=== PATIENT | female | born 1955 | race Caucasian/White ===

== ENCOUNTER → 2016-05-19 | Outpatient (CLI) | payer OTHER ==
[2016-05-19 08:35] LABS: BILIRUBIN,TOTAL 0.7 mg/dL (0.3-1.2); CALCIUM 9.5 mg/dL (8.7-10.7); POTASSIUM 4.2 meq/L (3.8-5.2); TOTAL PROTEIN 7.4 g/dL (6.1-8.0)
== END ==
LOC: LAB 07:59
PROVIDERS: ATTEND Internal Medicine
DX: E78.5 Hyperlipidemia, unspecified (principal); F17.210 Nicotine dependence, cigarettes, uncomplicated
CPT/HCPCS: 80053; 80061; 82550

== ENCOUNTER → 2016-08-25 | Outpatient (CLI) | payer OTHER ==
--- NOTE | 2016-08-25 17:06 | DI ---
[facility] 12[facility]24 PM: Clinical History: The submandibular swelling. Previous Exam: None at this facility. Findings: Multiple helically acquired CT images are obtained through the soft tissues of the neck without contr ast, and demonstrate normal parotid glands. The submandibular glands are grossly normal as well. The thyroid is unremarkable. Skeletal structures are unremarkable demonstrating mild diffuse degenerative changes. The base of the skull is also unremarkable. The temporomandibular joint is normal bilaterally. Visualized portions of the lung apices are clear. There is a prominent lymph node in the region of the left submandibular gland measuring 2.5 x 1.4 cm. Impression: 1. Normal submandibular lymph nodes. 2. Single 2.5 x 1.4 cm prominent lymph node adjacent to the left submandibular gland most likely the area of concern, as the submandibular gland is normal in size. Recommend continued clinical followup. If there is a clinically worrisome lymph node, consider sonographic followup or biopsy.
== END ==
LOC: CT 12:18
PROVIDERS: ATTEND Internal Medicine
DX: K11.8 Other diseases of salivary glands (principal); F17.200 Nicotine dependence, unspecified, uncomplicated; Z12.31 Encounter for screening mammogram for malignant neoplasm of breast
CPT/HCPCS: 70490; G0202

== ENCOUNTER → 2016-09-29 | Outpatient (CLI) | payer OTHER ==
--- NOTE | 2016-09-29 13:16 | DI ---
US SOFT TISSUE HEAD/NECK,09/29/2016 9:55 AM: Clinical History: Amrit of submandibular gland. Previous Exam: CT neck performed 08/25/16 Findings: Multiple grayscale and color Doppler sonographic images are obtained through the neck. The maximum ar ea of tenderness is seen over the right submandibular joint, which is essentially normal. There is a 1.5 x 0.6 cm lymph node within the right anterior cervical chain. The left submandibular gland was also imaged, with a similar appearance to the right. There was an ad jacent normal-appearing lymph node measuring 2.3 x 0.8 cm. Impression: 1. Bilateral normal submandibular glands. 2. Bilateral anterior cervical lymph nodes, which are nonpathologic by size criteria.
== END ==
LOC: US 09:51
PROVIDERS: ATTEND Internal Medicine
DX: R68.84 Jaw pain (principal)
CPT/HCPCS: 76536

== ENCOUNTER → 2016-10-29 | Outpatient (CLI) | payer OTHER ==
[2016-10-29 10:39] LABS: BASOPHILS # (AUTO) 0.03 10*3/UL; BASOPHILS % (AUTO) 0.3 % (0-1); EOSINOPHILS # (AUTO) 0.33 10*3/UL; EOSINOPHILS % (AUTO) 3.6 % (0-8); HEMATOCRIT 41.5 % (37.0-47.0); HEMOGLOBIN 13.6 g/dL (12.0-16.0); LYMPHOCYTES # (AUTO) 2.64 10*3/uL; MEAN CORPUSCULAR HEMOGLOBIN 28.9 PG (27-31); MEAN CORPUSCULAR HGB CONC 32.8 g/dL (33-37); MEAN CORPUSCULAR VOLUME 88.3 FL (81-99); MEAN PLATELET VOLUME 9.9 FL (7.4-12.2); MONOCYTES # (AUTO) 0.61 10*3/UL (0.3-0.8); MONOCYTES % (AUTO) 6.7 % (5-15); NEUTROPHILS # (AUTO) 5.42 10*3/UL
[2016-10-29 10:42] LABS: PLATELET MORPHOLOGY COMMENT NORMAL MORPHOLOGY (NORM); RBC MORPHOLOGY COMMENT NORMAL MORPHOLOGY (NORM); WBC MORPHOLOGY COMMENT NORMAL MORPHOLOGY (NORM)
[2016-10-29 10:57] LABS: BLOOD UREA NITROGEN 10 mg/dL (7-22); BUN/CREATININE RATIO 11.11 (6-20); C-REACTIVE PROTEIN 4.7 mg/dL (0.0-0.9); CALCIUM 8.8 mg/dL (8.7-10.7); EST GLOMERULAR FILTRATION > 60 (>60 ml/min/1.73m(2)); LIPASE 116 IU/L (23-300); SERUM ALBUMIN 3.7 g/dL (3.5-4.8)
--- NOTE | 2016-10-29 12:38 | DI ---
CT ABDOMEN SCAN WITH IV CONTRAST, 10/29/2016 11:11 AM : Clinical History: Left lower quadrant abdominal pain. Previous Exam: None at this facility. Scans are performed from the lower lung bases through the liver and kidneys with IV contrast. 75 ml o f Isovue 300 was injected IV. No oral or rectal contrast was ordered. The lung bases are clear. The liver is normal. The patient is status post cholecystectomy. There is n o abnormality of the spleen, pancreas, and adrenal glands. Both kidneys are normal in size, shape, po sition and contour. There is no hydronephrosis or hydroureter. No renal or ureteral calculi are prese nt. There are no abnormal retrocrural or periaortic nodes. No ascites is present. READING: Normal CT abdomen scan. CT PELVIS SCAN WITH IV CONTRAST, 10/29/2016 11:11 AM: Clinical History: See above. Previous Exam: 08/05/2014. Scans are performed from just superior to the umbilicus to the symphysis pubis with IV contrast. This is the same bolus of contrast used for the CT scans of the abdomen. Scans through the lower abdomen and pelvis show no masses or abnormal fluid collections. There is no adenopathy. There are surgical cristiane at the base of the cecum in this patient presumably has had an appendectomy. There is no inflammatory mass either in the cecal tip or in the right lower quadrant. The small bowel, terminal ileum, and ileocecal valve are normal. At the junction between the descendi ng colon and sigmoid colon, there is a focus of periserosal inflammatory change with inflammatory ruby nge extending into the mesentery associated with a diverticulum. This is consistent with acute divert iculitis without an abscess cavity or free air or free fluid. There is a small umbilical hernia throu gh which only mesenteric fat has herniated. The patient is status post hysterectomy and bilateral anita pingo-oophorectomy. READIN. There is a short segment of large bowel at the junction between the distal descending colon and t he sigmoid colon indicating acute diverticulitis without abscess formation. 2. The remainder of the examination is normal.
== END ==
LOC: MOB LAB 10:06
PROVIDERS: ATTEND Physician Assistant
DX: R10.32 Left lower quadrant pain (principal); E78.5 Hyperlipidemia, unspecified; K57.32 Diverticulitis of large intestine without perforation or abscess without bleeding
CPT/HCPCS: 36415; 74177; 80053; 83690; 85025; 86140; 87077; 87088; 87186

== ENCOUNTER 2016-11-18 10:23 | Emergency (ER) | payer OTHER ==
[2016-11-18] MEDS ORDERED: Sodium Chloride 0.9% 1,000 ML PRIMARY IV ONE (10:35)
[2016-11-18] MEDS ORDERED: NORMAL SALINE 10 ML SYRINGE FLUSH IVP PRN (10:35)
[2016-11-18] MEDS ORDERED: ONDANSETRON 4 MG/2 ML VIAL IVP ONE (10:35)
[2016-11-18] MEDS ORDERED: MORPHINE SULFATE 4 MG/1 ML IVP ONE (10:40)
[2016-11-18 10:48] VITALS: RESP 18; TEMP 96.8
[2016-11-18 11:00] LABS: BASOPHILS # (AUTO) 0.09 10*3/UL; BASOPHILS % (AUTO) 0.7 % (0-1); EOSINOPHILS # (AUTO) 0.45 10*3/UL; EOSINOPHILS % (AUTO) 3.4 % (0-8); HEMATOCRIT 44.6 % (37.0-47.0); HEMOGLOBIN 14.8 g/dL (12.0-16.0); LYMPHOCYTES # (AUTO) 2.68 10*3/uL; MEAN CORPUSCULAR HEMOGLOBIN 29.1 PG (27-31); MEAN CORPUSCULAR HGB CONC 33.2 g/dL (33-37); MEAN CORPUSCULAR VOLUME 87.8 FL (81-99); MEAN PLATELET VOLUME 9.9 FL (7.4-12.2); MONOCYTES # (AUTO) 0.79 10*3/UL (0.3-0.8); NEUTROPHILS # (AUTO) 9.18 10*3/UL; NEUTROPHILS % (AUTO) 69.4 % (50-80); RED BLOOD COUNT 5.08 10^6/uL (4.20-5.40)
[2016-11-18 11:07] LABS: C-REACTIVE PROTEIN 2.9 mg/dL (0.0-0.9); CALCIUM 9.5 mg/dL (8.7-10.7); SERUM ALBUMIN 4.2 g/dL (3.5-4.8)
[2016-11-18 11:09] LABS: PLATELET MORPHOLOGY COMMENT NORMAL MORPHOLOGY (NORM); RBC MORPHOLOGY COMMENT NORMAL MORPHOLOGY (NORM); WBC MORPHOLOGY COMMENT NORMAL MORPHOLOGY (NORM)
--- NOTE | 2016-11-18 11:10 | PDOC ---
Abdomen/Flank HPI - General Chief Complaint: Abdomen Pain Stated Complaint: abdomen Date Seen by Provider: 11/18/16 Time Seen by Provider: 10:30 Source: POSITIVE: Patient Exam Limitations: POSITIVE: No limitations Nurse's Notes Reviewed & Considered: Yes - History of Present Illness Initial Comments: The patient is a 61-year-old female who presents to the emergency department with abdominal pain. She states that last month she had presented to the walk- in clinic with left lower abdominal pain. She had a CAT scan at that time showing diverticulitis. She was treated with Cipro and Flagyl. Her symptoms and pain improved after treatment with antibiotics. Over the past week however she has had increasing mid abdominal pain. This morning her pain was quite severe and she is currently rating her pain about a 7 out of 10. She continues to have some intermittent diarrhea. She denies blood in her stool, fevers or chills, vomiting or urinary symptoms. She does have some associated nausea. She states that the pain generally intensifies just prior to having diarrhea stool. She has had previous hysterectomy, cholecystectomy and appendectomy. She reports having had a colonoscopy within the last 10 years. - Patient Home Medications Home Medications: Home Medications Levothyroxine Sodium [Synthroid] 1 tab ORAL QD #90 tab 05/20/16 Albuterol Sulfate [Proair Hfa] 2 puff INH QID #1 inh 08/19/16 Fluconazole [Diflucan] 200 mg PO DAILY #3 tab 11/18/16 Levofloxacin [Levaquin] 500 mg PO DAILY #7 tablet 11/18/16 Morphine Sulfate [Ms Contin] 1 tab PO Q12H #60 tab 11/18/16 Oxycodone HCl/Acetaminophen [Oxycodone-Acetaminophen 5-325] 1 - 2 tab ORAL Q6H PRN #120 tab 11/18/16 metroNIDAZOLE Tab [Flagyl Tab] 500 mg PO Q8H #30 tab 11/18/16 - Patient Allergies Allergies/Adverse Reactions: Allergies Allergy/AdvReac Type Severity Reaction Status Date / Time latex Allergy Intermediate hives Verified 11/18/16 10:31 peanut Allergy Intermediate RASH Verified 11/18/16 10:31 PAIN CONTRACT AdvReac Unknown NOT Uncoded 11/18/16 10:31 APPLICABLE Past Medical History - heen HEENT History: Denies History Cardiovascular History: Denies History Respiratory History: Shortness of Breath Additional Respiratory History: inhalers Gastrointestinal History: Diverticulitis, Irritable Bowel Syndrome Genitourinary History: Denies History Endocrine History: Hypothyroidism Additional Endocrine History: THYROIDECTOMY/ CA Musculoskeletal History: Arthritis, Back Pain Prosthesis or Implant: Yes (SCREW IN FOOT) Additional Musculoskeletal History: PAIN CONTRACT Neurological History: Denies History Blood Disorders: Denies History Psychiatric History: Denies History Female Reproductive History: Hysterectomy Cancer History: Other (please comment) In Past Year Been Physically Harmed or Verbally Threatened: No History of MDRO: No Tobacco Use: Current Every Day Smoker Alcohol Use: None Substance Use Type: None Previous Surgical History: Yes Type / Date of Surgery: THYROIDECTOMY, GB, APPY, HYST Anesthesia Reactions: No Past Medical History Reviewed: Reviewed - No Changes ROS - Limitations ROS Limitations: No Limitations Constitution: DENIES: Chills, Fever Cardiovascular: REPORTS: Denies Cardiac Symptoms Respiratory: REPORTS: Denies Resp Symptoms Neurological: REPORTS: Denies Neuro Symptoms Gastrointestinal: REPORTS: Abdominal Pain, Nausea, Diarrhea. DENIES: Vomitting , Black Stools, Bloody Stools, Constipation Musculoskeletal: REPORTS: Denies MS Symptoms Genitourinary: REPORTS: Hematuria (Chronic). DENIES: Dysuria, Difficulty Urinating Eyes: REPORTS: Denies Symptoms ENT: REPORTS: Denies Symptoms Skin: DENIES: Rash Abdominal/Flank Pain PE - General Appearance General Appearance: POSITIVE: Alert, Cooperative, No Acute Distress - HEENT HEENT: POSITIVE: Head Inspection Nml, Eyes Inspection Nml, Ears Inspection Nml, Nose Inspection Nml, Pharynx Inspect. Nml - Neck Neck: POSITIVE: Normal Inspection - Respiratory Respiratory: POSITIVE: No Respiratory Distress, Breath Sounds Normal - Cardiovascular Cardiovascular: POSITIVE: Regular Rate and Rhythm, Heart Sounds Normal Peripheral Pulses: Dorsalis-pedis (R): 2+, Dorsalis-pedis (L): 2+ - Abdomen Abdomen: Soft: (All Quadrants), Normal Bowel Sounds: (All Quadrants), No Palpabale Mass: (All Quadrants) Additional Abdominal Details: She does have tenderness primarily in the periumbilical region without guarding or rebound tenderness, she does have mild distention. - Skin Skin: POSITIVE: Intact, No Rash - Extremities Extremity: Normal ROM: (All Extremities), Normal Inspection: (All Extremities) - Neurological Neurological: POSITIVE: Oriented X3, Motor Normal, Sensation Normal, Other (No focal neurologic deficits) Abdomen Progress - Results Reviewed by me Xrays/CTs/US Reviewed by me: Yes Discussed with Radiologist: Yes Radiology Findings: CT scan of the abdomen and pelvis does reveal inflammatory changes in the transverse and descending colon, previous diverticulitis has resolved per radiologist. Lab Results Reviewed: Yes Lab Results:: Laboratory Results 11/18/16 11/18/16 Range/Units 10:43 12:48 WBC 13.22 H (4.8-10.8) 10^3/uL RBC 5.08 (4.20-5.40) 10^6/uL Hgb 14.8 (12.0-16.0) g/dL Hct 44.6 (37.0-47.0) % MCV 87.8 (81-99) FL MCH 29.1 (27-31) PG MCHC 33.2 (33-37) g/dL RDW Std Deviation 45.8 (39-50) fL RDW Coeff of Diana 14.5 (11.5-14.5) % Plt Count 407 H (140-350) 10*3/uL MPV 9.9 (7.4-12.2) FL Immature Gran % (Auto) 0.2 (0-5) % Neut % (Auto) 69.4 (50-80) % Lymph % (Auto) 20.3 (10-50) % [place] % (Auto) 6.0 (5-15) % Eos % (Auto) 3.4 (0-8) % Baso % (Auto) 0.7 (0-1) % Immature Gran # (Auto) 0.03 10*3/UL Neut # (Auto) 9.18 10*3/UL Lymph # (Auto) 2.68 10*3/uL [place] # (Auto) 0.79 (0.3-0.8) 10*3/UL Eos # (Auto) 0.45 10*3/UL Baso # (Auto) 0.09 10*3/UL WBC Morphology Comment Normal morphology (NORM) Plt Morphology Comment Normal morphology (NORM) RBC Morph Comment Normal morphology (NORM) Sodium 138 (135-145) meq/L Potassium 4.2 (3.8-5.2) meq/L Chloride 102 (98-112) meq/L Carbon Dioxide 26 (23-33) meq/L Anion Gap 10 (5-20) BUN 12 (7-22) mg/dL Creatinine 1.0 (0.50-1.20) mg/dL Estimated GFR 57 (>60 ml/min/1.73m(2)) BUN/Creatinine Ratio 12.00 (6-20) Glucose 110 (78-110) mg/dL Calculated Osmolality 286.0 (267-292) mOsm/kg Calcium 9.5 (8.7-10.7) mg/dL Total Bilirubin 0.6 (0.3-1.2) mg/dL AST 19 (8-39) IU/L ALT 22 (9-52) IU/L Alkaline Phosphatase 89 (38-126) IU/L C-Reactive Protein 2.9 H (0.0-0.9) mg/dL Total Protein 7.1 (6.1-8.0) g/dL Albumin 4.2 (3.5-4.8) g/dL Globulin 2.9 (2.50-4.10) g/dL Albumin/Globulin Ratio 1.40 (1.3-2.0) mg/g Amylase 57 (30-110) U/L Lipase 98 (23-300) IU/L Ur Collection Type Clean catch urine Urine Color Yellow Urine Clarity Clear (CLEAR) Urine pH 5.0 (5.0-8.5) Ur Specific [place] <=1.005 (1.005-1.030) Urine Protein Negative (NEG) mg/dl Urine Glucose (UA) Negative (NEG) mg/dL Urine Ketones Negative (NEG) Urine Occult Blood Small H (NEG) Urine Nitrate Negative (NEG) Urine Bilirubin Negative (NEG) Urine Urobilinogen 0.2 (0.2) EU/dL Ur Leukocyte Esterase Negative (NEG) Urine RBC None (NONE) /hpf Urine WBC None (NONE) Ur Squamous Epith Cells Rare (NONE) Ur Renal Epithelial Cell None (NONE) Urine Crystals None Urine Bacteria None (NONE) Urine Casts None (NONE) Urine Mucus None (NONE) Urine Trichomonas None (NONE) Urine Yeast None (NONE) Ur Culture Indicated? Culture not set - Patient's Progress MDM / ED Course: An IV was established and she did receive morphine 4 mg and Zofran 4 mg IV for pain and nausea. Her pain did improve. Her white blood cell count is mildly elevated. CT scan of her abdomen and pelvis does reveal inflammatory changes in the transverse and descending colon consistent with colitis. The patient was unable to provide a stool sample here in the emergency department. She has been on antibiotics recently and is at risk for C. difficile colitis. Treatment options were discussed including inpatient versus outpatient management. The patient prefers to be treated at home at this time and I think this is reasonable given her current clinical presentation. The patient was started on Levaquin and Flagyl and discharged home. Stool studies will be done at home. The patient will return to the emergency room she develops increased pain, dehydration, worsening or change in symptoms. - Consult Counseled: POSITIVE: Patient, RE: Lab Results, RE: Radiology Results, RE: DX, RE : Need for F/U Patient Care Time - Estimated PCT Patient Care Time (In Minutes): 35 Vital Signs - VS Reviewed Vital Signs Reviewed: Yes Discharge Clinical Impression: Colitis Discharge Disposition: Discharged to Home Condition: Stable Prescriptions / Orders: Fluconazole [Diflucan] 200 mg PO DAILY #3 tab metroNIDAZOLE Tab [Flagyl Tab] 500 mg PO Q8H #30 tab Levofloxacin [Levaquin] 500 mg PO DAILY #7 tablet Patient Instructions Given at Discharge: Colitis (ED) Additional Instructions: The CAT scan done here in the emergency department reveals inflammation in the mid and lower colon that was not present on the CAT scan done several weeks ago. The diverticulitis that was previously seen has resolved. We will need to check a stool study to look for certain bacteria that could cause this infection. For now you have been started on Flagyl 500 mg 3 times a day for 10 days. You should not drink any alcohol while taking this antibiotic. You have also been started on Levaquin 500 milligrams daily for 7 days. Continue your pain medication as previously prescribed. Return to the emergency room if increased pain, vomiting or dehydration, fever, blood in the stool, any worsening or change in symptoms. Recommend follow-up with primary care in 3-5 Follow Up With: NERISSA FONSECA [Primary Care Provider] -
--- NOTE | 2016-11-18 12:03 | DI ---
CT ABD W/CN AND PELVIS W/CN,11/18/2016 10:36 AM: Clinical History: Abdominal pain Previous Exam: October 29, 2016 Findings: Multiple helically acquired CT images are obtained through the abdomen and pelvis following the intra venous administration of contrast. There has been improvement of the acute diverticulitis seen on the prior exam. There has been near complete resolution of inflammatory changes. The urinary bladder is unremarkable. There is no free air nor free fluid. There is air some vague inflammatory changes which are new involving the transverse colon and descend ing colon. There is a hypodense area within the spleen which is stable. The liver, spleen, kidneys and adrenals are stable. Patient is status post cholecystectomy. The pancr eas is unremarkable. Impression: Vague inflammatory changes of the transverse colon and descending colon most consistent with a nonspe cific colitis. Interval resolution of acute diverticulitis.
[2016-11-18 12:57] LABS: BILIRUBIN,URINE NEGATIVE (NEG); CLARITY,URINE CLEAR (CLEAR); COLOR,URINE YELLOW; GLUCOSE, URINE (UA) NEGATIVE (NEG); NITRATE,URINE NEGATIVE (NEG); OCCULT BLOOD,URINE SMALL (NEG); PROTEIN,URINE NEGATIVE (NEG); UROBILINOGEN,URINE 0.2 EU/dL (0.2)
[2016-11-18 13:25] LABS: SQUAMOUS EPITHELIAL CELL,UR RARE; URINE SAMPLE TYPE CLEAN CATCH URINE
== END 2016-11-18 13:00 | disposition home or self-care (01) ==
LOC: ER 10:23
DX: K52.9 Noninfective gastroenteritis and colitis, unspecified (principal); R19.7 Diarrhea, unspecified; R31.9 Hematuria, unspecified; R11.0 Nausea; R10.32 Left lower quadrant pain
CPT/HCPCS: 74177; 80053; 81001; 81003; 82150; 83690; 85025; 86140; 87046; 87328; 87329; 87493; 96374; 96375; 99283 ×2; J2270; J2405; J7030